=== PATIENT | female | born 1995 | race Caucasian/White ===

== ENCOUNTER 2021-03-31 01:02 | Emergency (ER) | payer OTHER ==
[~2021-03-31] VITALS: Ht 154.9 cm; Wt 95.7 kg
[2021-03-31] MEDS ORDERED: FLAGYL500 MG PO (01:18)
== END 2021-03-31 03:31 | disposition home or self-care (01) ==
LOC: ED 01:02
DX: U07.1 COVID-19 (principal)
CPT/HCPCS: 71046; 94664; 99283-25; C9803; U0003

== ENCOUNTER 2021-04-25 13:41 | Emergency (ER) | payer OTHER ==
[~2021-04-25] VITALS: Ht 154.9 cm; Wt 95.7 kg
[~2021-04-25 13:41] MED LIST: FLAGYL500 MG PO
--- OUTSIDE RECORDS SUMMARY | 2021-04-25 13:46 | XMS ---
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 Virgilio has no Care Guidelines for this patient. E.DTk VISIT COUNT (12 MO.) 2 [facility] TOTAL 2 NOTE: Visits indicate total known visits. ED/C VISIT TRACKING (12 MO.) 04/25/2021 13:41 [facility] [place] TYPE: Emergency COMPLAINT: - R ANKLE INJURY 03/31/2021 01:04 [facility] [place] TYPE: Emergency COMPLAINT: - SOB, COUGH DIAGNOSES: - Cough - COVID-19 INPATIENT VISIT TRACKING (12 MO.) No inpatient visits to display in this time frame [email or web address]
== END 2021-04-25 15:35 | disposition home or self-care (01) ==
LOC: ED 13:41
DX: S93.601A Unspecified sprain of right foot, initial encounter (principal); S93.401A Sprain of unspecified ligament of right ankle, initial encounter; W22.8XXA Striking against or struck by other objects, initial encounter
CPT/HCPCS: 73610; 73630; 99283-25

== ENCOUNTER 2021-05-05 10:54 | Emergency (ER) | payer OTHER ==
[~2021-05-05] VITALS: Ht 154.9 cm; Wt 93.0 kg
--- OUTSIDE RECORDS SUMMARY | 2021-05-05 11:04 | XMS ---
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 Virgilio has no Care Guidelines for this patient. E.DTk VISIT COUNT (12 MO.) 3 [facility] [place] TOTAL 3 NOTE: Visits indicate total known visits. ED/C VISIT TRACKING (12 MO.) 05/05/2021 10:55 [facility] [place] TYPE: Emergency COMPLAINT: - RIGHT ANKLE PAIN 04/25/2021 13:41 [facility] [place] TYPE: Emergency COMPLAINT: - R ANKLE INJURY DIAGNOSES: - Striking against or struck by other objects, initial encounter - Unspecified sprain of right foot, initial encounter - Sprain of unspecified ligament of right ankle, initial encounter 03/31/2021 01:04 [facility] [place] TYPE: Emergency COMPLAINT: - SOB, COUGH DIAGNOSES: - Cough - COVID-19 INPATIENT VISIT TRACKING (12 MO.) No inpatient visits to display in this time frame [id number]
== END 2021-05-05 12:32 | disposition home or self-care (01) ==
LOC: ED 10:54
DX: S93.601A Unspecified sprain of right foot, initial encounter (principal); S93.401A Sprain of unspecified ligament of right ankle, initial encounter; W17.89XA Other fall from one level to another, initial encounter
CPT/HCPCS: 99283